=== PATIENT | male | born 2000 | race Caucasian/White ===

== ENCOUNTER 2020-03-12 19:17 | Emergency (ER) | payer BC, SELFPAY ==
--- NOTE | 2020-03-12 19:20 | ECG_ITS ---
[facility] Test Date: 2020-03-12 Pat Name: Maurilio Montanez Department: Room: Gender: Male Publicity Manager: : [id number] Requested By: Quentin Gutierrez Order Number: [id number] Lamine MD: Marquez Rutherford M.D. Measurements Intervals [place] Rate: 69 P: 36 OK: 151 QRS: 77 QRSD: 104 T: 43 QT: 374 QTc: 403 Interpretive Statements SINUS RHYTHM No previous ECG available for comparison Electronically Signed On 03-13-2020 20:10:17 CERTIFIED FIRE INVESTIGATOR by Marquez Rutherford M.D. [id number]
[2020-03-12 19:31] VITALS: BP 136/84; PULSE 121; RESP 18; TEMP 36.5; O2SAT 100; BMI 24.3
--- NOTE | 2020-03-12 22:14 | W.ED.DIZZY ---
HPI - Dizziness General: Chief Complaint: Dizziness Stated Complaint: light headed/dizzy few weeks/scope being done fri Time Seen by Provider: 03/12/20 22:08 History of Present Illness: HPI Narrative: Patient complains about dizziness since . Has been treated for stomach problems over the past year thought that may be a gastritis or irritable bowel none the medications are working. Patient is somewhat of a worrier he says. Dizziness does not seem to be related to anything he does or does not do what he eats or does not eat. Denies any ear problems. MD elicited complaint: dizziness Onset (ago): week(s) Timing: gradual onset Severity: mild Description: lightheadedness Exacerbating factors: nothing Relieving factors: nothing Associated symptoms: Reports no associated symptoms; Denies chest pain, chills, headache(s), nausea, nasal congestion or vomiting Associated neuro symptoms: Reports no associated symptoms Review of Systems Const: Denies: fever(s), chills or body aches Eyes: Denies: change in vision or blurry vision ENMT: Denies: throat pain or nasal congestion Card: Denies: chest pain or dyspnea on exertion Resp: Denies: dyspnea, productive cough or non-productive cough GI: Reports: abdominal pain (Being worked up for gastric reflux has EGD scheduled the end of this week) and diarrhea; Denies: nausea or vomiting : Denies: difficulty urinating Musc: Denies: extremity pain Skin/Breast: Denies: rash Neuro: Reports: dizziness; Denies: headache(s) Psych: Denies: anxiety or depression Mario/Lymph: Denies: easy bruising PFSH ED PFSH: Surgical History (Updated 06/12/19 @ 19:02 by Adam Palomino DPM) History of placement of ear tubes Family History (Updated 06/08/19 @ 08:15 by Judy Francois LPN) Other Cancer Diabetes Social History (Updated 06/08/19 @ 08:15 by Judy Francois LPN) Smoking and tobacco status: never smoked Alcohol intake: never Physical Exam Const: COMMON NORMALS: no acute distress, average body habitus and patient oriented x3 HENMT: COMMON NORMALS: normocephalic HEAD & SCALP: normal to inspection and normocephalic FACE & SINUS: normal facial exam Eye: COMMON NORMALS: conjunctivae normal GENERAL EYE: appearance normal, both eyes and all related structures CONJUNCTIVA: Yes conjunctivae normal Neck/C-Spine: COMMON NORMALS: no JVD Chest: COMMONS NORMALS: normal inspection of the chest Resp: COMMON NORMALS: normal respiratory effort and clear to auscultation bilaterally AUSCULTATION: clear to auscultation bilaterally Cardio: COMMON NORMALS: no JVD, regular rate and regular rhythm RATE: regular rate RHYTHM: regular rhythm GI: COMMON NORMALS: Normal to inspection, nondistended, normoactive bowel sounds present Extremity: COMMON NORMALS: normal to inspection and full ROM Neuro: COMMON NORMALS: patient oriented x3 Course Vital Signs: Vital signs: Vital Signs Temperature 97.7 F 03/12/20 19:31 Pulse Rate 121 H 03/12/20 19:31 Respiratory Rate 18 03/12/20 19:31 Blood Pressure 136/84 03/12/20 19:31 Pulse Oximetry 100 03/12/20 19:31 Discharge Plan Discharge Prescriptions: No Action cephalexin 500 mg capsule PO RF: 0 mupirocin 2 % ointment 1 applic TOPICAL BID Qty: 30 RF: 0 Coding Level of Care Code ED Customer Support Associate for Chg Luis
[2020-03-12 22:22] VITALS: BP 126/74; RESP 15; O2SAT 93
[2020-03-12 22:28] LABS: Basophils % 0.4 %; Eosinophils # 0.1 10^3/uL (0.0-0.8); Eosinophils % 0.6 %; Hematocrit 47.1 % (42.0-52.0); Hemoglobin 15.5 g/dL (11.7-16.6); Lymphocytes % 22.8 %; Mean Corpuscular HGB Conc 32.9 g/dL (30.0-36.0); Mean Corpuscular Hemoglobin 29.2 pg (28.0-34.0); Mean Corpuscular Volume 88.9 fL (80-94); Mean Platelet Volume 11.3 fL (7.4-10.4); Monocytes # 0.7 10^3/uL (0.2-0.9); Neutrophils # 6.05 10^3/uL (1.8-8.0); Nucleated Red Blood Cells % 0 %; Platelet Count 213 10^3/cmm (130-400); Red Cell Distribution Width 12.2 % (12.1-15.1); White Blood Count 8.9 10^3/uL (4.5-13.0)
[2020-03-12 22:44] LABS: Alanine Aminotransferase 24 U/L (0-41); Albumin Level 4.5 g/dL (3.5-5.2); Alkaline Phosphatase 86 IU/L (40-130); Anion Gap 10.9 (5-19); Aspartate Amino Transferase 17 U/L (0-40); Blood Urea Nitrogen 15 mg/dL (6-20); Calcium 9.9 mg/dL (8.5-10.5); Carbon Dioxide 26 mmol/L (22-29); Chloride 103 mmol/L (98-107); Glomerular Filtration Rate 123.2 mL/min (90-130); Glucose 113 mg/dL (65-115); Osmolality Calculated 284 mOsm/kg (285-295); Potassium 3.9 mmol/L (3.5-5.1); Sodium 136 mmol/L (136-145); Total Bilirubin 0.2 mg/dL (0.15-1.2); Total Protein 7.5 g/dL (6.6-8.7)
[2020-03-12] MEDS: meclizine 25 mg tablet PO (22:56)
[2020-03-12 23:09] VITALS: BP 121/73; PULSE 82; RESP 18; O2SAT 97
== END 2020-03-12 23:11 | disposition home or self-care (01) ==
PROVIDERS: Emergency Medicine; Emergency Provider Nurse Practitioner Family
DX: R42 Dizziness and giddiness (principal)
CPT/HCPCS: 12345; 80053; 85025; 93005; 99283; J8597